=== PATIENT | female | born 1980 | race African-American/Black ===

== ENCOUNTER 2017-03-18 20:12 | Emergency (ER) | payer OTHER ==
[~2017-03-18] VITALS: Ht 154.9 cm; Wt 89.8 kg
[~2017-03-18 20:12] MED LIST: ERGO500027 PO; FERR325T58 PO; HYDR50TA; IBUP-1060 PO; INSU100I17 SQ; INSU100I27 SQ; LISI-338 PO; METF500T PO; OLOP5DRO7 OU; ONDA4TAB7 PO; POLY10DR OD; VENTOLIN HFA18 GM
--- NOTE | 2017-03-18 21:28 | PHYS DOC ---
Past Medical History Past Medical History: Bronchitis, Diabetes-Type II, Other Additional Past Medical Histor: HEART MURMUR, VIT D DEF,STRABISMUS Past Surgical History: , Tubal ligation, Other Additional Past Surgical Histo: x 3, bilateral eye surgery. Alcohol Use: None Drug Use: None Adult General Chief Complaint Chief Complaint: ABDOMINAL PAIN HPI HPI Patient is a 36 year old female who presents with complaints of dysuria and mild abdominal pain in the middle of right side. Patient denies any fevers, chills, rashes, vomiting, diarrhea, vaginal discharge or vaginal bleeding. No history of trauma. Review of Systems Review of Systems Constitutional: Denies fever or chills [] Eyes: Denies change in visual acuity, redness, or eye pain [] HENT: Denies nasal congestion or sore throat [] Respiratory: Denies cough or shortness of breath [] Cardiovascular: No chest pain GI: Denies nausea, vomiting, bloody stools or diarrhea. Yes right middle abdominal pain : Denies dysuria or hematuria [] Musculoskeletal: Denies back pain or joint pain [] Integument: Denies rash or skin lesions [] Neurologic: Denies headache, focal weakness or sensory changes [] Current Medications Current Medications Current Medications Medications (Trade) Dose Ordered Sig/Rodri Start Time Stop Time Status Last Admin Dose Admin Hyoscyamine (Anaspaz) 0.125 mg PRN Q4HRS PRN 03/18/17 22:15 03/18/17 22:36 0.125 MG Ketorolac Tromethamine (Toradol) 15 mg 1X ONCE 03/18/17 23:00 03/18/17 23:01 DC 03/18/17 23:00 15 MG Naproxen (Naprosyn) 250 mg 1X ONCE 03/18/17 22:30 03/18/17 22:31 DC 03/18/17 22:36 250 MG Allergies Allergies Allergies Coded Allergies Type Severity Reaction Last Updated Verified No Known Drug Allergies 12/29/13 No Physical Exam Physical Exam Constitutional: Well developed, well nourished, no acute distress, non-toxic appearance. [] HENT: Normocephalic, atraumatic, bilateral external ears normal, oropharynx dry , no oral exudates, nose normal. [] Eyes:EOMI, conjunctiva normal, no discharge. [] Neck: Normal range of motion, no tenderness, trachea midline, no stridor. [] Cardiovascular:Heart rate regular rhythm, no murmur, equal pulses Lungs & Thorax: Bilateral breath sounds clear to auscultation, no tachypnea Abdomen: Bowel sounds normal, soft, very mild tenderness middle or right abdomen without guarding or rebound, no masses, no pulsatile masses. [] Skin: Warm, dry, no erythema, no rash. [] Back: No tenderness, no CVA tenderness. [] Extremities: No tenderness, no cyanosis, no DVT, ROM intact, no edema. [] Neurologic: Alert and oriented X 3, normal motor function, , no focal deficits noted. [] Psychologic: Affect normal, judgement normal, mood normal. [] Current Patient Data Vital Signs Vital Signs Date Time Temp Pulse Resp B/P (MAP) Pulse Ox O2 Delivery O2 Flow Rate FiO2 03/19/17 00:29 57 16 99/52 (68) 95 Room Air 03/18/17 21:25 98.6 98.6 Lab Values Laboratory Tests Test 03/18/17 20:22 03/18/17 21:33 03/18/17 21:58 Urine Collection Type Unknown Urine Color Yellow Urine Clarity Clear Urine pH 5.5 Urine Specific [place] >=1.030 Urine Protein Negative mg/dL (NEG-TRACE) Urine Glucose (UA) >=1000 mg/dL (NEG) Urine Ketones (Stick) Negative mg/dL (NEG) Urine Blood Negative (NEG) Urine Nitrite Negative (NEG) Urine Bilirubin Negative (NEG) Urine Urobilinogen Dipstick 0.2 mg/dL (0.2 mg/dL) Urine Leukocyte Esterase Negative (NEG) Urine RBC 0 /HPF (0-2) Urine WBC 5-10 /HPF (0-4) Urine Squamous Epithelial Cells Mod /LPF Urine Bacteria Few /HPF (0-FEW) POC Urine HCG, Qualitative Hcg negative (Negative) White Blood Count 8.0 x10^3/uL (4.0-11.0) Red Blood Count 4.07 x10^6/uL (3.50-5.40) Hemoglobin 10.1 g/dL (12.0-15.5) L Hematocrit 31.4 % (36.0-47.0) L Mean Corpuscular Volume 77 fL (79-100) L Mean Corpuscular Hemoglobin 25 pg (25-35) Mean Corpuscular Hemoglobin Concent 32 g/dL (31-37) Red Cell Distribution Width 17.7 % (11.5-14.5) H Platelet Count 267 x10^3/uL (140-400) Neutrophils (%) (Auto) 61 % (31-73) Lymphocytes (%) (Auto) 28 % (24-48) Monocytes (%) (Auto) 9 % (0-9) Eosinophils (%) (Auto) 2 % (0-3) Basophils (%) (Auto) 1 % (0-3) Neutrophils # (Auto) 4.9 x10^3uL (1.8-7.7) Lymphocytes # (Auto) 2.2 x10^3/uL (1.0-4.8) Monocytes # (Auto) 0.7 x10^3/uL (0.0-1.1) Eosinophils # (Auto) 0.2 x10^3/uL (0.0-0.7) Basophils # (Auto) 0.1 x10^3/uL (0.0-0.2) Sodium Level 134 mmol/L (136-145) L Potassium Level 3.9 mmol/L (3.5-5.1) Chloride Level 100 mmol/L (98-107) Carbon Dioxide Level 27 mmol/L (21-32) Anion Gap 7 (6-14) Blood Urea Nitrogen 7 mg/dL (7-20) Creatinine 0.8 mg/dL (0.6-1.0) Estimated GFR (Cockcroft-Gault) 97.1 BUN/Creatinine Ratio 9 (6-20) Glucose Level 386 mg/dL (70-99) H Calcium Level 8.7 mg/dL (8.5-10.1) Total Bilirubin 0.1 mg/dL (0.2-1.0) L Aspartate Amino Transferase (AST) 11 U/L (15-37) L Alanine Aminotransferase (ALT) 15 U/L (14-59) Alkaline Phosphatase 161 U/L (46-116) H Total Protein 7.6 g/dL (6.4-8.2) Albumin 3.3 g/dL (3.4-5.0) L Albumin/Globulin Ratio 0.8 (1.0-1.7) L Laboratory Tests 10/5/17 21:58 Laboratory Tests 03/18/17 21:58 EKG EKG [] Radiology/Procedures Radiology/Procedures US: Fatty liver, no other acute findings[] IMPRESSION: Enlarged fatty liver. Contracted gallbladder with no choleliths, sludge or wall thickening. Course & Med Decision Making Course & Med Decision Making Pertinent Labs and Imaging studies reviewed. (See chart for details) desire all been discussed with the patient. Patient has been advised to follow-up with her doctor for recheck and reevaluation in 2 days. [] Dragon Disclaimer Dragon Disclaimer This electronic medical record was generated, in whole or in part, using a voice recognition dictation system. Departure Departure Impression: Primary Impression: Abdominal pain Additional Impression: Fatty liver Disposition: HOME, SELF-CARE Condition: STABLE Referrals: KOSTA DOWNS (PCP) Follow-up for recheck and reevaluation 2 days Patient Instructions: Abdominal Pain (Nonspecific) Scripts Hyoscyamine Sulfate (LEVSIN) 0.125 Mg Tablet 1 TAB PO TID for 5 Days, #15 TAB 1 Refill Prov: Kimmy SU MD 03/19/17 Problem Qualifiers Kimmy SU MD Mar 18, 2017 21:28
[2017-03-18 21:39] LABS: BILIRUBIN,URINE NEGATIVE (NEG); GLUCOSE,URINE >=1000 mg/dL (NEG); NITRITE,URINE NEGATIVE (NEG); PH,URINE 5.5; PROTEIN,URINE NEGATIVE (NEG-TRACE); UROBILINOGEN,URINE 0.2 mg/dL (0.2 mg/dL)
[2017-03-18 21:48] LABS: BACTERIA,URINE FEW /HPF (0-FEW); RBC,URINE 0 /HPF (0-2); SQUAMOUS EPITHELIAL CELL,UR MOD /LPF
[2017-03-18 22:07] LABS: BASO # 0.1 x10^3/uL (0.0-0.2); BASO % 1 % (0-3); EOS % 2 % (0-3); HEMATOCRIT 31.4 % (36.0-47.0); HEMOGLOBIN 10.1 g/dL (12.0-15.5); LYMPH # 2.2 x10^3/uL (1.0-4.8); LYMPH % 28 % (24-48); MEAN CORPUSCULAR HEMOGLOBIN 25 pg (25-35); MEAN CORPUSCULAR HGB CONC 32 g/dL (31-37); MEAN CORPUSCULAR VOLUME 77 fL (79-100); MONO % 9 % (0-9); NEUT % 61 % (31-73); PLATELET COUNT 267 x10^3/uL (140-400); RED BLOOD COUNT 4.07 x10^6/uL (3.50-5.40); RED CELL DISTRIBUTION WIDTH 17.7 % (11.5-14.5)
[2017-03-18] MEDS ORDERED: HYOSCYAMINE 0.125 MG TAB.RAPDIS PO PRN (22:15)
[2017-03-18] MEDS ORDERED: NAPROXEN 250 MG TABLET PO ONE (22:30)
[2017-03-18 22:31] LABS: CALCIUM 8.7 mg/dL (8.5-10.1); CREATININE 0.8 mg/dL (0.6-1.0); GFR 97.1; POTASSIUM 3.9 mmol/L (3.5-5.1)
[2017-03-18 22:44] LABS: ALBUMIN 3.3 g/dL (3.4-5.0); ALBUMIN/GLOBULIN RATIO 0.8 (1.0-1.7); TOTAL BILIRUBIN 0.1 mg/dL (0.2-1.0); TOTAL PROTEIN 7.6 g/dL (6.4-8.2)
[2017-03-18] MEDS ORDERED: KETOROLAC 15 MG/ML VIAL. IV ONE (23:00)
--- NOTE | 2017-03-19 01:03 | RAD ---
Abdominal ultrasound right upper quadrant: Reason for examination: Right upper quadrant abdominal pain with nausea. Nothing by mouth 6.5 to 7 hours. The pancreas is poorly visualized due to bowel gas. Visualized portion of the inferior vena cava shows no abnormality. The liver appears to be enlarged at 20.6 cm with fatty infiltration. There appears to be normal hepatopetal blood flow in the portal venous system. The right kidney measures 11.3 x 4.9 x 4.3 cm in greatest dimension and shows normal cortical medullary differentiation and good blood flow with no mass or hydronephrosis. The gallbladder is contracted with no cholelithiasis or wall thickening evident. Common bile duct is normal at 5.3 mm. IMPRESSION: Enlarged fatty liver. Contracted gallbladder with no choleliths, sludge or wall thickening. Electronically signed by: Mary Smith MD (03/19/2017 1:00 AM) [id number]
[2017-03-19 01:43] VITALS: BP 112/53
[2017-03-19] MEDS ORDERED: HYOS0.1264 PO (01:52)
== END 2017-03-19 02:04 | disposition home or self-care (01) ==
LOC: ER 20:12
DX: R10.9 Unspecified abdominal pain (principal); R30.0 Dysuria; K76.0 Fatty (change of) liver, not elsewhere classified; E11.9 Type 2 diabetes mellitus without complications
CPT/HCPCS: 36415; 76705; 80053; 81001; 81025; 85025; 87086; 96374; 99285; J1885

== ENCOUNTER 2017-07-26 11:30 | Emergency (ER) | payer OTHER ==
[2017-07-26 11:58] LABS: URINE HCG POC HCG NEGATIVE (Negative)
[2017-07-26 12:00] LABS: POC GLUCOSE 515 mg/dL (70-99)
[2017-07-26 12:02] LABS: ADD MAN DIFF? NO
[2017-07-26 12:09] LABS: BASO # 0.1 x10^3/uL (0.0-0.2); BASO % 1 % (0-3); EOS # 0.1 x10^3/uL (0.0-0.7); EOS % 1 % (0-3); HEMOGLOBIN 11.8 g/dL (12.0-15.5); LYMPH # 1.5 x10^3/uL (1.0-4.8); LYMPH % 26 % (24-48); MEAN CORPUSCULAR HEMOGLOBIN 25 pg (25-35); MEAN CORPUSCULAR HGB CONC 32 g/dL (31-37); MEAN CORPUSCULAR VOLUME 80 fL (79-100); MONO # 0.5 x10^3/uL (0.0-1.1); MONO % 8 % (0-9); NEUT # 3.7 x10^3uL (1.8-7.7); NEUT % 63 % (31-73); PLATELET COUNT 289 x10^3/uL (140-400); RED BLOOD COUNT 4.65 x10^6/uL (3.50-5.40); RED CELL DISTRIBUTION WIDTH 17.4 % (11.5-14.5); WHITE BLOOD COUNT 5.8 x10^3/uL (4.0-11.0)
[2017-07-26] MEDS: FAMOTIDINE 20 MG/2 ML VIAL IVP ×2 (12:20)
[2017-07-26] MEDS: IV NORMAL SALINE 1000ML BAG 1,000 ML IV ×6 (12:21→14:14)
[2017-07-26] MEDS: INSULIN REGULAR 100 UNIT/ML 10ML VIAL. SQ ×2 (12:25)
[2017-07-26 12:44] LABS: ALBUMIN 3.4 g/dL (3.4-5.0); ALBUMIN/GLOBULIN RATIO 0.7 (1.0-1.7); ALK PHOS 234 U/L (46-116); ALT (SGPT) 14 U/L (14-59); ANION GAP 10 (6-14); AST (SGOT) 12 U/L (15-37); BLOOD UREA NITROGEN 12 mg/dL (7-20); BUN/CREATININE RATIO 15 (6-20); CALCIUM 9.6 mg/dL (8.5-10.1); CARBON DIOXIDE 26 mmol/L (21-32); CHLORIDE 96 mmol/L (98-107); CREATININE 0.8 mg/dL (0.6-1.0); GFR 97.1; LIPASE 103 U/L (73-393); POTASSIUM 4.3 mmol/L (3.5-5.1); SODIUM 132 mmol/L (136-145); TOTAL BILIRUBIN 0.2 mg/dL (0.2-1.0); TOTAL PROTEIN 8.6 g/dL (6.4-8.2)
[2017-07-26 12:47] LABS: POC GLUCOSE 397 mg/dL (70-99)
[2017-07-26 12:48] LABS: GLUCOSE 542 mg/dL (70-99)
[2017-07-26 12:49] LABS: ACETONE NEG (NEG)
[2017-07-26 12:57] LABS: NEG OBC SER NEG; POS OBC SER POS; PREG TEST PT QUAL NEGATIVE (NEG)
[2017-07-26] MEDS: IV NORMAL SALINE 1000ML BAG 500 ML IV ×2 (14:15)
[2017-07-26 14:16] LABS: POC GLUCOSE 331 mg/dL (70-99)
== END 2017-07-26 15:39 | disposition home or self-care (01) ==
LOC: ER 11:30
DX: Z91.14 Patient's other noncompliance with medication regimen (principal); E11.65 Type 2 diabetes mellitus with hyperglycemia; F17.210 Nicotine dependence, cigarettes, uncomplicated; Z88.2 Allergy status to sulfonamides; Z88.1 Allergy status to other antibiotic agents
CPT/HCPCS: 36415; 80053; 81025; 82010; 82962; 83690; 84703; 85025; 96361; 96372; 96374; 99284-25; J1815; J7030; S0028

== ENCOUNTER 2017-08-31 10:13 | Emergency (ER) | payer OTHER ==
[2017-08-31 10:33] LABS: ADD MAN DIFF? NO
[2017-08-31 10:43] LABS: URINE HCG POC HCG NEGATIVE (Negative)
[2017-08-31 10:48] LABS: ANION GAP 9 (6-14); BASO % 1 % (0-3); BLOOD UREA NITROGEN 9 mg/dL (7-20); BUN/CREATININE RATIO 13 (6-20); CALCIUM 8.5 mg/dL (8.5-10.1); CARBON DIOXIDE 28 mmol/L (21-32); CHLORIDE 100 mmol/L (98-107); CREATININE 0.7 mg/dL (0.6-1.0); EOS # 0.1 x10^3/uL (0.0-0.7); EOS % 2 % (0-3); GFR 112.7; GLUCOSE 326 mg/dL (70-99); HEMOGLOBIN 10.4 g/dL (12.0-15.5); LYMPH # 1.6 x10^3/uL (1.0-4.8); LYMPH % 30 % (24-48); MEAN CORPUSCULAR HEMOGLOBIN 26 pg (25-35); MEAN CORPUSCULAR HGB CONC 32 g/dL (31-37); MEAN CORPUSCULAR VOLUME 79 fL (79-100); MONO # 0.5 x10^3/uL (0.0-1.1); MONO % 10 % (0-9); NEUT # 2.9 x10^3uL (1.8-7.7); NEUT % 57 % (31-73); PLATELET COUNT 279 x10^3/uL (140-400); POTASSIUM 3.6 mmol/L (3.5-5.1); RED BLOOD COUNT 4.04 x10^6/uL (3.50-5.40); RED CELL DISTRIBUTION WIDTH 18.5 % (11.5-14.5); SODIUM 137 mmol/L (136-145); WHITE BLOOD COUNT 5.1 x10^3/uL (4.0-11.0)
[2017-08-31 10:53] LABS: NEG OBC SER NEG; POS OBC SER POS; PREG TEST PT QUAL NEGATIVE (NEG)
[2017-08-31 10:57] LABS: TROPONINI < 0.017 ng/mL (0.000-0.055)
[2017-08-31 10:58] LABS: ALBUMIN 2.9 g/dL (3.4-5.0); ALBUMIN/GLOBULIN RATIO 0.7 (1.0-1.7); ALK PHOS 152 U/L (46-116); ALT (SGPT) 16 U/L (14-59); AST (SGOT) 19 U/L (15-37); TOTAL BILIRUBIN 0.2 mg/dL (0.2-1.0); TOTAL PROTEIN 7.2 g/dL (6.4-8.2)
[2017-08-31] MEDS: FAMOTIDINE 20 MG TABLET. PO (11:03)
[2017-08-31] MEDS: LIDO:MAALOX:DONNATAL 1:1:1 15 ML SINGLE DOSE SWSW (11:03)
== END 2017-08-31 11:55 | disposition home or self-care (01) ==
LOC: ER 10:13
DX: R07.89 Other chest pain (principal); R09.81 Nasal congestion; R05 Cough; K21.9 Gastro-esophageal reflux disease without esophagitis; E11.9 Type 2 diabetes mellitus without complications; Z98.51 Tubal ligation status; Z90.49 Acquired absence of other specified parts of digestive tract; Z88.2 Allergy status to sulfonamides; Z88.1 Allergy status to other antibiotic agents
CPT/HCPCS: 36415; 71045; 80053; 81025; 84484; 84703; 85025; 93005; 99285-25

== ENCOUNTER 2018-08-07 00:12 | Emergency (ER) | payer SELFPAY ==
[~2018-08-07] VITALS: Ht 157.5 cm; Wt 80.3 kg
[~2018-08-07 00:12] MED LIST changes: +HYOS0.1264 PO; +OLOP5DRO13 OU; -OLOP5DRO7 OU
[2018-08-07 00:28] VITALS: BP 136/87
[2018-08-07 00:34] LABS: CLARITY,URINE TURBID; COLOR,URINE RED
[2018-08-07 00:43] LABS: BACTERIA,URINE FEW /HPF (0-FEW); RBC,URINE TNTC /HPF (0-2); SQUAMOUS EPITHELIAL CELL,UR FEW /LPF; WBC,URINE 20-40 /HPF (0-4)
[2018-08-07 00:44] LABS: U PREG PATIENT NEGATIVE (NEG)
[2018-08-07 01:10] LABS: BILIRUBIN,URINE NEGATIVE (NEG); CLARITY,URINE CLOUDY; COLOR,URINE YELLOW; NITRITE,URINE NEGATIVE (NEG); PROTEIN,URINE 100 mg/dL (NEG-TRACE)
[2018-08-07 01:16] LABS: BACTERIA,URINE FEW /HPF (0-FEW); SQUAMOUS EPITHELIAL CELL,UR FEW /LPF; WBC,URINE 20-40 /HPF (0-4)
[2018-08-07] MEDS ORDERED: PHENAZOPYRIDINE 200 MG TABLET. PO ONE (01:30)
[2018-08-07] MEDS ORDERED: SULF1TAB24 PO (01:32)
[2018-08-07] MEDS ORDERED: PHEN-318 PO (01:32)
[2018-08-07] MEDS ORDERED: NITR100C63 PO (01:40)
--- NOTE | 2018-08-07 01:56 | PHYS DOC ---
Past Medical History Past Medical History: Bronchitis, Depression, Diabetes-Type II Additional Past Medical Histor: vitamin D deficency Past Surgical History: , Tubal ligation Additional Past Surgical Histo: eye surgery (strabismus correction) Alcohol Use: None Drug Use: None Adult General Chief Complaint Chief Complaint: PAIN ON URINATION HPI HPI Patient is a 37 year old female who presents with dysuria, urinary frequency and urgency the past 24 hours. Patient was reports hematuria she is on her menstrual period. No flank pain, and no fever chills, nausea vomiting or sweats. No other acute symptoms or complaints. History of recurrent urinary tract infections. [] Review of Systems Review of Systems Symptoms as per history of present illness. All other review symptoms are negative. All other systems were reviewed and found to be within normal limits, except as documented in this note. Current Medications Current Medications Current Medications Medications (Trade) Dose Ordered Sig/Rodri Start Time Stop Time Status Last Admin Dose Admin Nitrofurantoin Macrocrystals (Macrobid) 100 mg 1X ONCE 08/07/18 02:00 08/07/18 02:01 Phenazopyridine HCl (Pyridium) 200 mg 1X ONCE 08/07/18 01:30 08/07/18 01:31 DC 08/07/18 01:30 200 MG Allergies Allergies Allergies Coded Allergies Type Severity Reaction Last Updated Verified sulfamethoxazole Adverse Reaction Intermediate nausea and vomiting 07/26/17 Yes trimethoprim Adverse Reaction Intermediate nausea and vomiting 07/26/17 Yes Physical Exam Physical Exam Constitutional: Well developed, well nourished, no acute distress, non-toxic appearance. [] HENT: Normocephalic, atraumatic, bilateral external ears normal, oropharynx moist, nose normal. [] Eyes: PERRLA, EOMI, conjunctiva normal, no discharge. [] Lungs & Thorax: Bilateral breath sounds clear to auscultation [] Abdomen: Bowel sounds normal, soft, suprapubic pain, tenderness. [] Skin: Warm, dry, no erythema, no rash. [] Back: No tenderness, no CVA tenderness. [] Extremities: No tenderness, no cyanosis, no clubbing, ROM intact, no edema. [] Neurologic: Alert and oriented X 3. [] Psychologic: Affect normal, judgement normal, mood normal. [] Current Patient Data Vital Signs Vital Signs Date Time Temp Pulse Resp B/P (MAP) Pulse Ox O2 Delivery O2 Flow Rate FiO2 08/07/18 00:28 97.4 96 18 136/87 (103) 98 Room Air 97.4 Lab Values Laboratory Tests Test 08/07/18 00:15 08/07/18 00:58 Urine Collection Type Unknown U cath Urine Color Red Yellow Urine Clarity Turbid Cloudy Urine pH 6.0 Urine Specific [place] >=1.030 >=1.030 Urine Protein mg/dL (NEG-TRACE) 100 mg/dL (NEG-TRACE) Urine Glucose (UA) mg/dL (NEG) >=1000 mg/dL (NEG) Urine Ketones (Stick) mg/dL (NEG) Negative mg/dL (NEG) Urine Blood (NEG) Large (NEG) Urine Nitrite (NEG) Negative (NEG) Urine Bilirubin (NEG) Negative (NEG) Urine Urobilinogen Dipstick mg/dL (0.2 mg/dL) 1.0 mg/dL (0.2 mg/dL) Urine Leukocyte Esterase (NEG) Small (NEG) Urine RBC Tntc /HPF (0-2) 11-20 /HPF (0-2) Urine WBC 20-40 /HPF (0-4) 20-40 /HPF (0-4) Urine Squamous Epithelial Cells Few /LPF Few /LPF Urine Bacteria Few /HPF (0-FEW) Few /HPF (0-FEW) Urine Test Negative (NEG) Urine Mucus Slight /LPF EKG EKG [] Radiology/Procedures Radiology/Procedures [] Course & Med Decision Making Course & Med Decision Making Pertinent Labs and Imaging studies reviewed. (See chart for details) [First dose of antibiotics given. Recommend PCP follow-up] Dragon Disclaimer Dragon Disclaimer This electronic medical record was generated, in whole or in part, using a voice recognition dictation system. Departure Departure Impression: Primary Impression: UTI (urinary tract infection) Disposition: 01 HOME, SELF-CARE Condition: GOOD Patient Instructions: Urinary Tract Infection, [id number] Additional Instructions: Please take antibiotics as directed and Pyridium for pain relief. Follow-up with your PCP in 2-3 days for urine culture results. Return to the ED if new or worsening symptoms. Scripts Nitrofurantoin Macrocrystal (MACRODANTIN) 100 Mg Capsule 1 CAP PO BID, #20 CAP Prov: ALFONSO ALEXANDER DO 08/07/18 Phenazopyridine Hcl (PYRIDIUM) 200 Mg Tablet 200 MG PO TID, #6 TAB Prov: ALFONSO ALEXANDER DO 08/07/18 ALFONSO ALEXANDER DO Aug 07, 2018 01:56
[2018-08-07] MEDS ORDERED: NITROFURANTOIN MONOHYD/M-CRYST 100 MG CAPSULE. PO ONE (02:00)
== END 2018-08-07 01:56 | disposition home or self-care (01) ==
LOC: ER 00:12
DX: N39.0 Urinary tract infection, site not specified (principal); E11.9 Type 2 diabetes mellitus without complications; Z98.51 Tubal ligation status; Z88.1 Allergy status to other antibiotic agents; Z88.2 Allergy status to sulfonamides
CPT/HCPCS: 81001; 81025; 87086; 87186; 99283

== ENCOUNTER 2018-11-13 23:13 | Emergency (ER) | payer OTHER, SELFPAY ==
[~2018-11-13] VITALS: Ht 157.5 cm; Wt 76.2 kg
[~2018-11-13 23:13] MED LIST changes: +NITR100C63 PO; +PHEN-318 PO; +SULF1TAB24 PO
[2018-11-14 00:56] LABS: BILIRUBIN,URINE NEGATIVE (NEG); CLARITY,URINE CLEAR; COLOR,URINE YELLOW; NITRITE,URINE POSITIVE (NEG); PROTEIN,URINE NEGATIVE (NEG-TRACE)
[2018-11-14 00:57] LABS: CALCIUM 8.9 mg/dL (8.5-10.1); CREATININE 0.7 mg/dL (0.6-1.0); GFR 112.1; POTASSIUM 4.3 mmol/L (3.5-5.1)
[2018-11-14 01:03] LABS: ALBUMIN 3.5 g/dL (3.4-5.0); ALBUMIN/GLOBULIN RATIO 0.8 (1.0-1.7); MAGNESIUM 1.9 mg/dL (1.8-2.4); TOTAL BILIRUBIN 0.2 mg/dL (0.2-1.0); TOTAL PROTEIN 7.9 g/dL (6.4-8.2)
[2018-11-14 01:08] LABS: BASO # 0.1 x10^3/uL (0.0-0.2); BASO % 1 % (0-3); EOS # 0.1 x10^3/uL (0.0-0.7); EOS % 1 % (0-3); HEMATOCRIT 33.3 % (36.0-47.0); HEMOGLOBIN 10.6 g/dL (12.0-15.5); LYMPH # 2.6 x10^3/uL (1.0-4.8); LYMPH % 35 % (24-48); MEAN CORPUSCULAR HEMOGLOBIN 24 pg (25-35); MEAN CORPUSCULAR HGB CONC 32 g/dL (31-37); MEAN CORPUSCULAR VOLUME 76 fL (79-100); MONO # 1.2 x10^3/uL (0.0-1.1); MONO % 16 % (0-9); NEUT # 3.7 x10^3uL (1.8-7.7); NEUT % 48 % (31-73); PLATELET COUNT 243 x10^3/uL (140-400); RED BLOOD COUNT 4.36 x10^6/uL (3.50-5.40); RED CELL DISTRIBUTION WIDTH 15.7 % (11.5-14.5); WHITE BLOOD COUNT 7.7 x10^3/uL (4.0-11.0)
[2018-11-14 01:12] LABS: BACTERIA,URINE MANY /HPF (0-FEW); RBC,URINE OCC /HPF (0-2); SQUAMOUS EPITHELIAL CELL,UR MOD /LPF; WBC,URINE TNTC /HPF (0-4)
[2018-11-14] MEDS ORDERED: CEPH500C PO (01:27)
[2018-11-14 02:59] VITALS: BP 107/55
--- NOTE | 2018-11-14 03:14 | PHYS DOC ---
Past Medical History Past Medical History: Bronchitis, Depression, Diabetes-Type II Additional Past Medical Histor: vitamin D deficency Past Surgical History: , Tubal ligation Additional Past Surgical Histo: eye surgery (strabismus correction) Alcohol Use: None Drug Use: None Adult General Chief Complaint Chief Complaint: MULTIPLE COMPLAINTS HPI HPI Patient is a 38 year old f with cc of scalp numnbess. right side x one day. no trauma noted. also has intermittent numbness of the b/l legs and hands comes and goes thinks that is from diabetes no headche no speech problem, no facial symptoms. no fever. tries to be comlpiant with her medications symptoms modeating nonradiating. Review of Systems Review of Systems Constitutional: Denies fever or chills [] Eyes: Denies change in visual acuity, redness, or eye pain [] HENT: Denies nasal congestion or sore throat [] Respiratory: Denies cough or shortness of breath [] Musculoskeletal: Denies back pain or joint pain [] All other systems were reviewed and found to be within normal limits, except as documented in this note. Allergies Allergies Allergies Coded Allergies Type Severity Reaction Last Updated Verified sulfamethoxazole Adverse Reaction Intermediate nausea and vomiting 07/26/17 Yes trimethoprim Adverse Reaction Intermediate nausea and vomiting 07/26/17 Yes Physical Exam Physical Exam Constitutional: Well developed, well nourished, no acute distress, non-toxic appearance. [] HENT: Normocephalic, atraumatic, bilateral external ears normal, oropharynx moist, no oral exudates, nose normal. [] Eyes: PERRLA, EOMI, conjunctiva normal, no discharge. [] Neck: Normal range of motion, no tenderness, supple, no stridor. [] Cardiovascular:Heart rate regular rhythm, no murmur [] Lungs & Thorax: Bilateral breath sounds clear to auscultation [] Abdomen: Bowel sounds normal, soft, no tenderness, no masses, no pulsatile masses. [] Skin: Warm, dry, no erythema, no rash. [] no obvious scalp lesion noted Back: No tenderness, no CVA tenderness. [] Extremities: No tenderness, no cyanosis, no clubbing, ROM intact, no edema. [] Neurologic: Alert and oriented X 3, normal motor function, normal sensory fu nction, no focal deficits noted. [] sensation and motor function intact, cn's intact Psychologic: Affect normal, judgement normal, mood normal. [] Current Patient Data Vital Signs Vital Signs Date Time Temp Pulse Resp B/P (MAP) Pulse Ox O2 Delivery O2 Flow Rate FiO2 11/14/18 00:34 78 18 115/70 (85) 99 Room Air 11/13/18 23:50 98.4 98.4 Lab Values Laboratory Tests Test 11/14/18 00:01 11/14/18 00:20 Urine Collection Type Unknown Urine Color Yellow Urine Clarity Clear Urine pH 7.0 Urine Specific [place] >=1.030 Urine Protein Negative mg/dL (NEG-TRACE) Urine Glucose (UA) >=1000 mg/dL (NEG) Urine Ketones (Stick) Negative mg/dL (NEG) Urine Blood Negative (NEG) Urine Nitrite Positive (NEG) Urine Bilirubin Negative (NEG) Urine Urobilinogen Dipstick 1.0 mg/dL (0.2 mg/dL) Urine Leukocyte Esterase Small (NEG) Urine RBC Occ /HPF (0-2) Urine WBC Tntc /HPF (0-4) Urine Squamous Epithelial Cells Mod /LPF Urine Bacteria Many /HPF (0-FEW) Urine Mucus Slight /LPF POC Urine HCG, Qualitative Hcg negative (Negative) White Blood Count 7.7 x10^3/uL (4.0-11.0) Red Blood Count 4.36 x10^6/uL (3.50-5.40) Hemoglobin 10.6 g/dL (12.0-15.5) L Hematocrit 33.3 % (36.0-47.0) L Mean Corpuscular Volume 76 fL (79-100) L Mean Corpuscular Hemoglobin 24 pg (25-35) L Mean Corpuscular Hemoglobin Concent 32 g/dL (31-37) Red Cell Distribution Width 15.7 % (11.5-14.5) H Platelet Count 243 x10^3/uL (140-400) Neutrophils (%) (Auto) 48 % (31-73) Lymphocytes (%) (Auto) 35 % (24-48) Monocytes (%) (Auto) 16 % (0-9) H Eosinophils (%) (Auto) 1 % (0-3) Basophils (%) (Auto) 1 % (0-3) Neutrophils # (Auto) 3.7 x10^3uL (1.8-7.7) Lymphocytes # (Auto) 2.6 x10^3/uL (1.0-4.8) Monocytes # (Auto) 1.2 x10^3/uL (0.0-1.1) H Eosinophils # (Auto) 0.1 x10^3/uL (0.0-0.7) Basophils # (Auto) 0.1 x10^3/uL (0.0-0.2) Sodium Level 134 mmol/L (136-145) L Potassium Level 4.3 mmol/L (3.5-5.1) Chloride Level 97 mmol/L (98-107) L Carbon Dioxide Level 29 mmol/L (21-32) Anion Gap 8 (6-14) Blood Urea Nitrogen 8 mg/dL (7-20) Creatinine 0.7 mg/dL (0.6-1.0) Estimated GFR (Cockcroft-Gault) 112.1 BUN/Creatinine Ratio 11 (6-20) Glucose Level 361 mg/dL (70-99) H Calcium Level 8.9 mg/dL (8.5-10.1) Magnesium Level 1.9 mg/dL (1.8-2.4) Total Bilirubin 0.2 mg/dL (0.2-1.0) Aspartate Amino Transferase (AST) 14 U/L (15-37) L Alanine Aminotransferase (ALT) 15 U/L (14-59) Alkaline Phosphatase 174 U/L (46-116) H Troponin I Quantitative < 0.017 ng/mL (0.000-0.055) Total Protein 7.9 g/dL (6.4-8.2) Albumin 3.5 g/dL (3.4-5.0) Albumin/Globulin Ratio 0.8 (1.0-1.7) L Laboratory Tests 11/14/18 00:20 Laboratory Tests 11/14/18 00:20 EKG EKG [] Radiology/Procedures Radiology/Procedures [] Impressions: wet read head ct neg acute Course & Med Decision Making Course & Med Decision Making Pertinent Labs and Imaging studies reviewed. (See chart for details) []38 yo f diabetic p/w isolated scalp numnbess. stroke scale 0 ct head neg pt reassured abx for possible uti counseled on good bg control. no evidnece of cva clinically Dragon Disclaimer Dragon Disclaimer This electronic medical record was generated, in whole or in part, using a voice recognition dictation system. Departure Departure Impression: Primary Impression: Urinary tract infection Disposition: 01 HOME, SELF-CARE Condition: STABLE Patient Instructions: Urinary Tract Infection Scripts Cephalexin (CEPHALEXIN) 500 Mg Capsule 1 CAP PO QID, #40 CAP Prov: ISABELLE NEELY MD 11/14/18 ISABELLE NEELY MD Nov 14, 2018 03:14
--- NOTE | 2018-11-14 06:42 | EKG ---
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
--- NOTE | 2018-11-14 23:53 | RAD ---
Sarah Bennettren INDICATION: Numbness of scalp and face COMPARISON: None. TECHNIQUE: Axial CT images obtained through the head without intravenous contrast. One or more of the following individualized dose reduction techniques were utilized for this examination: 1. Automated exposure control; 2. Adjustment of the mA and/or kV according to patient size; 3. Use of iterative reconstruction technique. FINDINGS: No intracranial hemorrhage. No midline shift. Basal cisterns patent. Ventricles and sulci are unremarkable. No acute osseous abnormality. Orbits and paranasal sinuses unremarkable. IMPRESSION: 1. No acute intracranial hemorrhage. Electronically signed by: Kody May MD (11/14/2018 11:50 PM) [facility]
== END 2018-11-14 03:09 | disposition home or self-care (01) ==
LOC: ER 23:13
DX: N39.0 Urinary tract infection, site not specified (principal); R20.0 Anesthesia of skin; F32.9 Major depressive disorder, single episode, unspecified; E11.9 Type 2 diabetes mellitus without complications; Z98.890 Other specified postprocedural states; Z98.51 Tubal ligation status; Z88.1 Allergy status to other antibiotic agents; Z88.2 Allergy status to sulfonamides
CPT/HCPCS: 36415; 70450; 80053; 81001; 81025; 83735; 84484; 85025; 87086; 87186; 93005; 99285-25

== ENCOUNTER 2019-01-16 19:26 | Emergency (ER) | payer OTHER ==
[~2019-01-16] VITALS: Ht 157.5 cm; Wt 73.9 kg
[~2019-01-16 19:26] MED LIST changes: +CEPH500C PO
[2019-01-16] MEDS ORDERED: IV NORMAL SALINE 1000ML BAG 1,000 ML IV SCH (19:53)
[2019-01-16] MEDS ORDERED: ACETAMINOPHEN 500 MG TABLET PO ONE (20:15)
[2019-01-16] MEDS ORDERED: fentaNYL PF VIAL 100 MCG/2 ML VIAL IV ONE (20:15)
[2019-01-16] MEDS ORDERED: ONDANSETRON PF 4 MG/2 ML VIAL. IV ONE (20:15)
--- NOTE | 2019-01-16 20:26 | PHYS DOC ---
Past Medical History Past Medical History: Diabetes-Type II Additional Past Medical Histor: vitamin D deficency (ELLIE TEIXEIRA APRN) Past Surgical History: Additional Past Surgical Histo: eye surgery (strabismus correction) (ELLIE TEIXEIRA APRN) Alcohol Use: None Drug Use: None (ELLIE TEIXEIRA APRN) Adult General Chief Complaint Chief Complaint: FLANK PAIN HPI HPI Patient is a 38 year old Female who presents with 1 week of right rib pain with occasional pain with taking a deep breath. Patient states she is also having nausea and vomiting. Patient is rating her pain a 8 out of 10 and states it is aching and sharp. (ELLIE TEIXEIRA APRN) Review of Systems Review of Systems Constitutional: Denies fever or chills [] Eyes: Denies change in visual acuity, redness, or eye pain [] HENT: Denies nasal congestion or sore throat [] Respiratory: Denies cough or shortness of breath [] Cardiovascular: No additional information not addressed in HPI [] GI: Denies abdominal pain, +nausea, +vomiting, denies bloody stools or diarrhea [] : Denies dysuria or hematuria [] Musculoskeletal: Right rib pain. Denies back pain or joint pain [] Integument: Denies rash or skin lesions [] Neurologic: Denies headache, focal weakness or sensory changes [] Endocrine: Denies polyuria or polydipsia [] All other systems were reviewed and found to be within normal limits, except as documented in this note. (ELLIE TEIXEIRA APRN) Current Medications Current Medications Current Medications Medications (Trade) Dose Ordered Sig/Rodri Start Time Stop Time Status Last Admin Dose Admin Acetaminophen (Tylenol) 1,000 mg 1X ONCE 01/16/19 20:15 01/16/19 20:22 DC 01/16/19 20:31 1,000 MG Ceftriaxone Sodium (Rocephin) 1 gm 1X ONCE 01/16/19 23:00 01/16/19 23:01 DC 01/16/19 22:52 1 GM Fentanyl Citrate (Fentanyl 2ml Vial) 50 mcg 1X ONCE 01/16/19 20:15 01/16/19 20:22 DC 01/16/19 20:38 50 MCG Info (CONTRAST GIVEN -- Rx MONITORING) 1 each PRN DAILY PRN 01/16/19 22:30 01/16/19 23:39 DC Iohexol (Omnipaque 350 Mg/ml) 90 ml 1X ONCE 01/16/19 22:30 01/16/19 22:31 DC 01/16/19 22:35 90 ML Ondansetron HCl (Zofran) 4 mg 1X ONCE 01/16/19 20:15 01/16/19 20:22 DC 01/16/19 20:33 4 MG Sodium Chloride 1,000 ml @ 1,000 mls/hr 1X ONCE 01/16/19 20:30 01/16/19 21:29 DC 01/16/19 20:30 1,000 MLS/HR (ISABELLE LEARY MD) Allergies Allergies Allergies Coded Allergies Type Severity Reaction Last Updated Verified sulfamethoxazole Adverse Reaction Intermediate nausea and vomiting 07/26/17 Yes trimethoprim Adverse Reaction Intermediate nausea and vomiting 07/26/17 Yes (ISABELLE LEARY MD) Physical Exam Physical Exam Constitutional: Well developed, well nourished, no acute distress, non-toxic appearance. [] HENT: Normocephalic, atraumatic, bilateral external ears normal, oropharynx moist, no oral exudates, nose normal. [] Eyes: PERRLA, EOMI, conjunctiva normal, no discharge. [] Neck: Normal range of motion, no tenderness, supple, no stridor. [] Cardiovascular:Heart rate regular tachy rhythm, no murmur [] Lungs & Thorax: Bilateral breath sounds clear to auscultation [] Abdomen: Bowel sounds normal, soft, no tenderness, no masses, no pulsatile masses. [] Skin: Warm, moist, no erythema, no rash. [] Back: Right rib tenderness with palpation. No tenderness, no CVA tenderness. [] Extremities: No tenderness, no cyanosis, no clubbing, ROM intact, no edema. [] Neurologic: Alert and oriented X 3, normal motor function, normal sensory function, no focal deficits noted. [] Psychologic: Affect normal, judgement normal, mood normal. [] (ELLIE TEIXEIRA APRN) Current Patient Data Vital Signs Vital Signs Date Time Temp Pulse Resp B/P (MAP) Pulse Ox O2 Delivery O2 Flow Rate FiO2 01/16/19 23:07 72 14 106/52 (70) 98 Room Air 01/16/19 19:41 99.9 99.9 (ISABELLE LEARY MD) Lab Values Laboratory Tests Test 01/16/19 19:30 01/16/19 20:10 01/16/19 20:30 01/16/19 22:15 Urine Opiates Screen Neg (NEG) Urine Methadone Screen Neg (NEG) Urine Barbiturates Neg (NEG) Urine Phencyclidine Screen Neg (NEG) Urine Amphetamine/Methamphetamine Neg (NEG) Urine Benzodiazepines Screen Neg (NEG) Urine Cocaine Screen Neg (NEG) Urine Cannabinoids Screen Neg (NEG) Urine Ethyl Alcohol Neg (NEG) POC Urine HCG, Qualitative Hcg negative (Negative) White Blood Count 6.3 x10^3/uL (4.0-11.0) Red Blood Count 4.26 x10^6/uL (3.50-5.40) Hemoglobin 10.2 g/dL (12.0-15.5) L Hematocrit 31.9 % (36.0-47.0) L Mean Corpuscular Volume 75 fL (79-100) L Mean Corpuscular Hemoglobin 24 pg (25-35) L Mean Corpuscular Hemoglobin Concent 32 g/dL (31-37) Red Cell Distribution Width 17.6 % (11.5-14.5) H Platelet Count 254 x10^3/uL (140-400) Neutrophils (%) (Auto) 82 % (31-73) H Lymphocytes (%) (Auto) 12 % (24-48) L Monocytes (%) (Auto) 5 % (0-9) Eosinophils (%) (Auto) 0 % (0-3) Basophils (%) (Auto) 1 % (0-3) Neutrophils # (Auto) 5.2 x10^3/uL (1.8-7.7) Lymphocytes # (Auto) 0.8 x10^3/uL (1.0-4.8) L Monocytes # (Auto) 0.3 x10^3/uL (0.0-1.1) Eosinophils # (Auto) 0.0 x10^3/uL (0.0-0.7) Basophils # (Auto) 0.0 x10^3/uL (0.0-0.2) D-Dimer (Roya) 0.71 ug/mlFEU (0.00-0.50) H Sodium Level 133 mmol/L (136-145) L Potassium Level 3.7 mmol/L (3.5-5.1) Chloride Level 96 mmol/L (98-107) L Carbon Dioxide Level 23 mmol/L (21-32) Anion Gap 14 (6-14) Blood Urea Nitrogen 9 mg/dL (7-20) Creatinine 0.9 mg/dL (0.6-1.0) Estimated GFR (Cockcroft-Gault) 83.9 BUN/Creatinine Ratio 10 (6-20) Glucose Level 289 mg/dL (70-99) H Lactic Acid Level 2.3 mmol/L (0.4-2.0) H Calcium Level 8.6 mg/dL (8.5-10.1) Total Bilirubin 0.3 mg/dL (0.2-1.0) Aspartate Amino Transferase (AST) 16 U/L (15-37) Alanine Aminotransferase (ALT) 18 U/L (14-59) Alkaline Phosphatase 145 U/L (46-116) H Total Protein 8.3 g/dL (6.4-8.2) H Albumin 3.3 g/dL (3.4-5.0) L Albumin/Globulin Ratio 0.7 (1.0-1.7) L Urine Collection Type Unknown Urine Color Yellow Urine Clarity Cloudy Urine pH 6.0 Urine Specific [place] 1.020 Urine Protein 100 mg/dL (NEG-TRACE) Urine Glucose (UA) >=1000 mg/dL (NEG) Urine Ketones (Stick) 15 mg/dL (NEG) Urine Blood Moderate (NEG) Urine Nitrite Positive (NEG) Urine Bilirubin Negative (NEG) Urine Urobilinogen Dipstick 1.0 mg/dL (0.2 mg/dL) Urine Leukocyte Esterase Large (NEG) Urine RBC 11-20 /HPF (0-2) Urine WBC Tntc /HPF (0-4) Urine Squamous Epithelial Cells Few /LPF Urine Bacteria Many /HPF (0-FEW) Urine Mucus Mod /LPF Laboratory Tests 01/16/19 20:30 Laboratory Tests 01/16/19 20:30 (ISABELLE LEARY MD) Lab Values Laboratory Tests Test 01/16/19 19:30 01/16/19 20:10 01/16/19 20:30 01/16/19 22:15 Urine Opiates Screen Neg (NEG) Urine Methadone Screen Neg (NEG) Urine Barbiturates Neg (NEG) Urine Phencyclidine Screen Neg (NEG) Urine Amphetamine/Methamphetamine Neg (NEG) Urine Benzodiazepines Screen Neg (NEG) Urine Cocaine Screen Neg (NEG) Urine Cannabinoids Screen Neg (NEG) Urine Ethyl Alcohol Neg (NEG) POC Urine HCG, Qualitative Hcg negative (Negative) White Blood Count 6.3 x10^3/uL (4.0-11.0) Red Blood Count 4.26 x10^6/uL (3.50-5.40) Hemoglobin 10.2 g/dL (12.0-15.5) L Hematocrit 31.9 % (36.0-47.0) L Mean Corpuscular Volume 75 fL (79-100) L Mean Corpuscular Hemoglobin 24 pg (25-35) L Mean Corpuscular Hemoglobin Concent 32 g/dL (31-37) Red Cell Distribution Width 17.6 % (11.5-14.5) H Platelet Count 254 x10^3/uL (140-400) Neutrophils (%) (Auto) 82 % (31-73) H Lymphocytes (%) (Auto) 12 % (24-48) L Monocytes (%) (Auto) 5 % (0-9) Eosinophils (%) (Auto) 0 % (0-3) Basophils (%) (Auto) 1 % (0-3) Neutrophils # (Auto) 5.2 x10^3/uL (1.8-7.7) Lymphocytes # (Auto) 0.8 x10^3/uL (1.0-4.8) L Monocytes # (Auto) 0.3 x10^3/uL (0.0-1.1) Eosinophils # (Auto) 0.0 x10^3/uL (0.0-0.7) Basophils # (Auto) 0.0 x10^3/uL (0.0-0.2) D-Dimer (Roya) 0.71 ug/mlFEU (0.00-0.50) H Sodium Level 133 mmol/L (136-145) L Potassium Level 3.7 mmol/L (3.5-5.1) Chloride Level 96 mmol/L (98-107) L Carbon Dioxide Level 23 mmol/L (21-32) Anion Gap 14 (6-14) Blood Urea Nitrogen 9 mg/dL (7-20) Creatinine 0.9 mg/dL (0.6-1.0) Estimated GFR (Cockcroft-Gault) 83.9 BUN/Creatinine Ratio 10 (6-20) Glucose Level 289 mg/dL (70-99) H Lactic Acid Level 2.3 mmol/L (0.4-2.0) H Calcium Level 8.6 mg/dL (8.5-10.1) Total Bilirubin 0.3 mg/dL (0.2-1.0) Aspartate Amino Transferase (AST) 16 U/L (15-37) Alanine Aminotransferase (ALT) 18 U/L (14-59) Alkaline Phosphatase 145 U/L (46-116) H Total Protein 8.3 g/dL (6.4-8.2) H Albumin 3.3 g/dL (3.4-5.0) L Albumin/Globulin Ratio 0.7 (1.0-1.7) L Urine Collection Type Unknown Urine Color Yellow Urine Clarity Cloudy Urine pH 6.0 Urine Specific [place] 1.020 Urine Protein 100 mg/dL (NEG-TRACE) Urine Glucose (UA) >=1000 mg/dL (NEG) Urine Ketones (Stick) 15 mg/dL (NEG) Urine Blood Moderate (NEG) Urine Nitrite Positive (NEG) Urine Bilirubin Negative (NEG) Urine Urobilinogen Dipstick 1.0 mg/dL (0.2 mg/dL) Urine Leukocyte Esterase Large (NEG) Urine RBC 11-20 /HPF (0-2) Urine WBC Tntc /HPF (0-4) Urine Squamous Epithelial Cells Few /LPF Urine Bacteria Many /HPF (0-FEW) Urine Mucus Mod /LPF Laboratory Tests 01/16/19 20:30 Laboratory Tests 01/16/19 20:30 (ELLIE TEIXEIRA APRN) EKG EKG Sinus Tach and no STEMI[] Interpretation Time: [address] Leary (ELLIE TEIXEIRA APRN) Radiology/Procedures Radiology/Procedures [] (ELLIE TEIXEIRA APRN) Course & Med Decision Making Course & Med Decision Making Patient is a 38 year old Female who presents with 1 week of right rib pain with occasional pain with taking a deep breath. Patient states she is also having nausea and vomiting. Patient is rating her pain a 8 out of 10 and states it is aching and sharp. Patient denies abdominal pain, headache, dizziness, palp itations, chest pain, shortness of air, numbness or tingling, weakness. Upon walking the room patient is lying in bed on her right side with the blankets over her head and when I introduced myself she does not take the blankets off of her self. I take the blankets off for the patient and asked her again. Patient didn't response but does not roll over on the bed and she is asked several times to do so. Patient does comply. Patient does not have any pain with moving in the bed. Lungs are clear to auscultation in all lobes. Abdomen is soft and nontender. Patient has right rib tenderness with palpation. No CVA tenderness. Patient states she has been vomiting. Patient is diabetic. Patient heart rate is in the 130s. Patient denies any dysuria symptoms. Alert and oriented. PERRLA. No extremity swelling. Patient's skin is pink warm and moist. Patient states she is very cold. Patient's temp is 99.9. Speaks in full clear sentences. Denies any visual changes. Ambulatory with a steady gait. Chest x-ray read by Dr. Leary and shows no acute findings. D-dimer is elevated and have ordered a CT angiogram chest. EKG shows sinus tachycardia no STEMI. Patient's lactic acid is elevated and she have received 2 L of normal saline. Patient urinalysis shows infection. I have started Rocephin. 2247: Patient is reported off to Dr Leary. (ELLIE TEIXEIRA APRN) Course & Med Decision Making IMPRESSION: 1. No evidence for aortic dissection or pulmonary embolism. 2. Focal ill-defined hypoattenuating lesion in the inferior pole the right kidney measures approximately 1.7 x 1.3 cm. Consideration may be given for pyelonephritis. Complex or complicated cyst may have similar appearance. Consider renal ultrasound or short-term follow-up renal mass protocol CT for further evaluation. Electronically signed by: Preeti Garay MD (01/16/2019 11:01 PM) [facility] i saw pt she feels better eager to go home rx keflex hr no longer tachycardic return prec discussed (ISABELLE LEARY MD) Dragon Disclaimer Dragon Disclaimer This electronic medical record was generated, in whole or in part, using a voice recognition dictation system. (ELLIE TEIXEIRA APRN) Departure Departure Impression: Primary Impression: Urinary tract infection Disposition: HOME, SELF-CARE Condition: STABLE Referrals: KOSTA DOWNS (PCP) Scripts Cephalexin (CEPHALEXIN) 500 Mg Tablet 1 TAB PO QID, #40 TAB Prov: ISABELLE LEARY MD 01/16/19 ELLIE TEIXEIRA APRN Jan 16, 2019 20:26 ISABELLE LEARY MD Jan 17, 2019 01:01
[2019-01-16 20:29] LABS: BARBITURATES NEG (NEG); BENZODIAZEPINES NEG (NEG); CANNABINOIDS NEG (NEG); COCAINE NEG (NEG); METHADONE NEG (NEG); OPIATES NEG (NEG); PHENCYCLIDINE NEG (NEG)
[2019-01-16 20:30] LABS: AMPHETAMINE/METHAMPHETAMINE NEG (NEG)
[2019-01-16] MEDS ORDERED: IV NORMAL SALINE 1000ML BAG 1,000 ML IV ONE (20:30)
--- NOTE | 2019-01-16 20:36 | NUR ---
Preg ran in house. results negative.
[2019-01-16 20:42] LABS: BASO % 1 % (0-3); EOS % 0 % (0-3); HEMATOCRIT 31.9 % (36.0-47.0); HEMOGLOBIN 10.2 g/dL (12.0-15.5); LYMPH # 0.8 x10^3/uL (1.0-4.8); LYMPH % 12 % (24-48); MEAN CORPUSCULAR HEMOGLOBIN 24 pg (25-35); MEAN CORPUSCULAR HGB CONC 32 g/dL (31-37); MEAN CORPUSCULAR VOLUME 75 fL (79-100); MONO # 0.3 x10^3/uL (0.0-1.1); MONO % 5 % (0-9); NEUT # 5.2 x10^3/uL (1.8-7.7); NEUT % 82 % (31-73); PLATELET COUNT 254 x10^3/uL (140-400); RED BLOOD COUNT 4.26 x10^6/uL (3.50-5.40); RED CELL DISTRIBUTION WIDTH 17.6 % (11.5-14.5); WHITE BLOOD COUNT 6.3 x10^3/uL (4.0-11.0)
[2019-01-16 20:53] LABS: CALCIUM 8.6 mg/dL (8.5-10.1); CREATININE 0.9 mg/dL (0.6-1.0); GFR 83.9; POTASSIUM 3.7 mmol/L (3.5-5.1)
[2019-01-16 20:58] LABS: ALBUMIN 3.3 g/dL (3.4-5.0); ALBUMIN/GLOBULIN RATIO 0.7 (1.0-1.7); TOTAL BILIRUBIN 0.3 mg/dL (0.2-1.0); TOTAL PROTEIN 8.3 g/dL (6.4-8.2)
[2019-01-16 22:25] LABS: BILIRUBIN,URINE NEGATIVE (NEG); CLARITY,URINE CLOUDY; COLOR,URINE YELLOW; NITRITE,URINE POSITIVE (NEG); PROTEIN,URINE 100 mg/dL (NEG-TRACE)
[2019-01-16 22:29] LABS: BACTERIA,URINE MANY /HPF (0-FEW); SQUAMOUS EPITHELIAL CELL,UR FEW /LPF; WBC,URINE TNTC /HPF (0-4)
[2019-01-16] MEDS ORDERED: CONTRAST GIVEN. MC PRN (22:30)
[2019-01-16] MEDS ORDERED: IOHEXOL 350 MG/ML 100 ML VIAL. IV ONE (22:30)
[2019-01-16] MEDS ORDERED: cefTRIAXone IV Push 1 GM VIAL. IVP ONE (23:00)
--- NOTE | 2019-01-16 23:04 | RAD ---
PQRS Compliance Statement: One or more of the following individualized dose reduction techniques were utilized for this examination: 1. Automated exposure control 2. Adjustment of the mA and/or kV according to patient size 3. Use of iterative reconstruction technique CT angiogram chest, abdomen and pelvis with contrast 01/16/2019 9:50 PM INDICATION: Elevated d-dimer COMPARISON: None available TECHNIQUE: Multiple axial CT images of the chest, abdomen and pelvis were obtained after the intravenous administration of nonionic contrast. Coronal and sagittal reformats are provided. Maximum intensity projection images are provided. FINDINGS: No pathologically enlarged thoracic lymph nodes are identified. Thyroid gland is normal in appearance. Heart size within normal limits. Thoracic aorta is normal in course and caliber. No filling defects are identified within the opacified portions of the pulmonary arteries to suggest acute or chronic pulmonary emboli. No suspicious solid noncalcified pulmonary nodules. No pleural effusions, pulmonary vascular congestion or pneumothorax. Lungs are clear. Liver, spleen, bilateral adrenal glands, pancreas and gallbladder are normal in appearance. The abdominal aorta is normal in course and caliber. There are no pathologically enlarged lymph nodes in the abdomen and pelvis. There is no abdominal free fluid. There is no free intraperitoneal air. Small and large bowel are normal in caliber. There is no evidence for bowel obstruction. There are no pericolonic inflammatory changes. A normal, nondilated appendix is visualized without adjacent inflammatory changes. The kidneys enhance symmetrically. Ill-defined hypoattenuation is identified in the inferior pole the right kidney (series 5, image 34) measuring 1.7 x 1.3 cm. Correlate with any signs and symptoms of pyelonephritis. There is no hydronephrosis. There are no suspected calculi within the kidneys, ureters or urinary bladder. 5 mm simple cyst in the inferior pole the left kidney. Right adnexal cyst measures 3.1 x 3.0 cm. Uterus and left adnexa are normal by CT. No suspicious osseous abnormality is identified. IMPRESSION: 1. No evidence for aortic dissection or pulmonary embolism. 2. Focal ill-defined hypoattenuating lesion in the inferior pole the right kidney measures approximately 1.7 x 1.3 cm. Consideration may be given for pyelonephritis. Complex or complicated cyst may have similar appearance. Consider renal ultrasound or short-term follow-up renal mass protocol CT for further evaluation. Electronically signed by: Preeti Garay MD (01/16/2019 11:01 PM) [facility]
[2019-01-16 23:07] VITALS: BP 106/52
[2019-01-16] MEDS ORDERED: CEPH500T PO (23:20)
--- NOTE | 2019-01-17 07:24 | EKG ---
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
--- NOTE | 2019-01-17 08:22 | RAD ---
CHEST PA LATERAL, RIBS RIGHT History: Right-sided flank pain, nausea and vomiting Comparison: 08/31/2017 chest AP view Findings: Frontal and lateral views of chest were obtained. Frontal view of the right ribs and oblique view of the right ribs were provided. The cardiomediastinal silhouette is normal. Pulmonary vasculature is normal. The lungs are clear. No pleural effusion or pneumothorax is seen. There is no acute bone abnormality. No right rib fracture. IMPRESSION: No acute cardiopulmonary process. Electronically signed by: Ba Black MD (01/17/2019 8:19 AM) [facility]
== END 2019-01-16 23:31 | disposition home or self-care (01) ==
LOC: ER 19:26
DX: N39.0 Urinary tract infection, site not specified (principal); R07.81 Pleurodynia; R11.2 Nausea with vomiting, unspecified; E11.9 Type 2 diabetes mellitus without complications; Z88.1 Allergy status to other antibiotic agents; Z88.2 Allergy status to sulfonamides
CPT/HCPCS: 36415; 71046; 71100; 71275; 74177; 80053; 80307; 81001; 81025; 83605; 85025; 85379; 87040; 87086; 93005; 96361; 96374; 96375; 99285; J0696; J2405; J3010; J7030; Q9967

== ENCOUNTER 2019-08-04 23:32 | Emergency (ER) | payer OTHER ==
[~2019-08-04] VITALS: Ht 157.5 cm; Wt 79.1 kg
[~2019-08-04 23:32] MED LIST changes: +CEPH500T PO
[2019-08-05] VITALS: BP 123/67
[2019-08-05 00:26] LABS: BILIRUBIN,URINE NEGATIVE (NEG); CLARITY,URINE CLEAR; COLOR,URINE YELLOW; NITRITE,URINE NEGATIVE (NEG); PROTEIN,URINE NEGATIVE (NEG-TRACE); UROBILINOGEN,URINE 0.2 mg/dL (0.2 mg/dL)
[2019-08-05 00:39] LABS: BACTERIA,URINE MODERATE /HPF (0-FEW); SQUAMOUS EPITHELIAL CELL,UR FEW /LPF
[2019-08-05] MEDS ORDERED: PHEN-318 PO (01:01)
[2019-08-05] MEDS ORDERED: CEPH500C PO (01:01)
--- NOTE | 2019-08-05 01:02 | PHYS DOC ---
Past Medical History Past Medical History: Asthma, Bronchitis, Diabetes-Type II Additional Past Medical Histor: vitamin D deficency Past Surgical History: No Surgical History Additional Past Surgical Histo: eye surgery (strabismus correction) Smoking Status: Current Every Day Smoker Alcohol Use: None Drug Use: None Adult General Chief Complaint Chief Complaint: LOWER EXT PAIN HPI HPI Patient is a 38 year old AA female who presents to the ER with complaints of lower back pain and suprapubic pain for the last 2 days. She reports that she feels like she has a UTI. Pt reports increased urinary frequency, foul smelling urine, and dysuria. She denies any hematuria, fever, nausea, vomiting, or diarrhea. Pt states that her back pain does not radiate into her lower extremities and that her discomfort is not worse with movement. She denies any numbness, tingling, or weakness of her lower extremities. She currently rates her pain a 10/10 on the pain scale she denies any alleviating factors. Review of Systems Review of Systems Complete ROS is negative unless otherwise noted in HPI. Allergies Allergies Allergies Coded Allergies Type Severity Reaction Last Updated Verified sulfamethoxazole Adverse Reaction Intermediate nausea and vomiting 07/26/17 Yes trimethoprim Adverse Reaction Intermediate nausea and vomiting 07/26/17 Yes Physical Exam Physical Exam See Above Constitutional: Well developed, well nourished, no acute distress, non-toxic appearance. [] HENT: Normocephalic, atraumatic, bilateral external ears normal, nose normal. [] Eyes: PERRLA, EOMI, conjunctiva normal, no discharge. [] Neck: Normal range of motion, no stridor. [] Cardiovascular:Heart rate regular rhythm Lungs & Thorax: Respirations even and unlabored, no retractions, no respiratory distress Skin: Warm, dry, no erythema, no rash. [] Back: No bony tenderness, no CVA tenderness. [] Extremities: No cyanosis, ROM intact, no edema. [] Neurologic: Alert and oriented X 3, no focal deficits noted. [] Psychologic: Affect normal, judgement normal, mood normal. [] Current Patient Data Vital Signs Vital Signs Date Time Temp Pulse Resp B/P (MAP) Pulse Ox O2 Delivery O2 Flow Rate FiO2 08/05/19 00:00 98.7 93 16 123/67 (85) 98 Room Air 98.7 Lab Values Laboratory Tests Test 08/05/19 00:02 08/05/19 00:07 Urine Collection Type Unknown Urine Color Yellow Urine Clarity Clear Urine pH 6.0 Urine Specific [place] >=1.030 Urine Protein Negative mg/dL (NEG-TRACE) Urine Glucose (UA) >=1000 mg/dL (NEG) Urine Ketones (Stick) Negative mg/dL (NEG) Urine Blood Negative (NEG) Urine Nitrite Negative (NEG) Urine Bilirubin Negative (NEG) Urine Urobilinogen Dipstick 0.2 mg/dL (0.2 mg/dL) Urine Leukocyte Esterase Negative (NEG) Urine RBC 1-2 /HPF (0-2) Urine WBC 1-4 /HPF (0-4) Urine Squamous Epithelial Cells Few /LPF Urine Bacteria Moderate /HPF (0-FEW) POC Urine HCG, Qualitative Hcg negative (Negative) EKG EKG [] Radiology/Procedures Radiology/Procedures [] Course & Med Decision Making Course & Med Decision Making Pertinent Labs and Imaging studies reviewed. (See chart for details) [] Dragon Disclaimer Dragon Disclaimer This electronic medical record was generated, in whole or in part, using a voice recognition dictation system. Departure Departure Impression: Primary Impression: Urinary tract infection Disposition: HOME, SELF-CARE Condition: STABLE Referrals: KOSTA DOWNS (PCP) Patient Instructions: Urinary Tract Infection, [id number] Additional Instructions: Fill the prescriptions and use as directed. Increase fluids, avoid bladder irritants including caffeine, carbonation, and spicy foods. Follow up with your primary care doctor next week. Return to the ER if symptoms worsen. Scripts Cephalexin (CEPHALEXIN) 500 Mg Capsule 1 CAP PO TID for 7 Days, #21 CAP 0 Refills Prov: JANNY KEVIN APRN 08/05/19 Phenazopyridine Hcl (PYRIDIUM) 200 Mg Tablet 1 TAB PO TID for urinary discomfort for 3 Days, #9 TAB 0 Refills Prov: JANNY KEVIN APRN 08/05/19 Problem Qualifiers Primary Impression: Urinary tract infection Urinary tract infection type: site unspecified Hematuria presence: without hematuria Qualified Codes: N39.0 - Urinary tract infection, site not specified JANNY KEVIN APRN Aug 05, 2019 01:02
== END 2019-08-05 01:05 | disposition home or self-care (01) ==
LOC: ER 23:32
DX: N39.0 Urinary tract infection, site not specified (principal); J45.909 Unspecified asthma, uncomplicated; E11.9 Type 2 diabetes mellitus without complications; F17.200 Nicotine dependence, unspecified, uncomplicated; Z88.1 Allergy status to other antibiotic agents; Z88.2 Allergy status to sulfonamides
CPT/HCPCS: 81001; 81025; 87086; 99283

== ENCOUNTER 2020-08-20 10:40 | Emergency (ER) | payer OTHER ==
[~2020-08-20] VITALS: Ht 157.5 cm; Wt 83.1 kg
[~2020-08-20 10:40] MED LIST changes: -LISI-338 PO; +LISI-517 PO
[2020-08-20 11:02] VITALS: BP 125/67
--- NOTE | 2020-08-20 11:23 | PHYS DOC ---
Past Medical History Past Medical History: Asthma, Bronchitis, Diabetes-Type II Additional Past Medical Histor: vitamin D deficency Past Surgical History: , Tubal ligation, Other Additional Past Surgical Histo: eye surgery (strabismus correction) Smoking Status: Current Every Day Smoker Additional Information: 06/15 ppd Alcohol Use: None Drug Use: None General Adult EDM: Chief Complaint: EYE PROBLEMS HPI: HPI: Patient is a 40 year old female who presented to ER due to 2-day history of s kin irritation on her upper eyelids bilaterally. Patient denies any discharge or drainage from her eyes, denies any redness, denies any blurry vision. Patient denies any fever Review of Systems: Review of Systems: Constitutional: Denies fever or chills. [] Eyes: Denies change in visual acuity. [] HENT: Denies nasal congestion or sore throat. [] Respiratory: Denies cough or shortness of breath. [] Cardiovascular: Denies chest pain or edema. [] GI: Denies abdominal pain, nausea, vomiting, bloody stools or diarrhea. [] : Denies dysuria. [] Musculoskeletal: Denies back pain or joint pain. [] Integument: Denies rash. [] Neurologic: Denies headache, focal weakness or sensory changes. [] Endocrine: Denies polyuria or polydipsia. [] Lymphatic: Denies swollen glands. [] Psychiatric: Denies depression or anxiety. [] Heart Score: C/O Chest Pain: N/A Risk Factors: Risk Factors: DM, Current or recent (<one month) smoker, HTN, HLP, family history of CAD, obesity. Risk Scores: Score 0 - 3: 2.5% MACE over next 6 weeks - Discharge Home Score 4 - 6: 20.3% MACE over next 6 weeks - Admit for Clinical Observation Score 7 - 10: 72.7% MACE over next 6 weeks - Early Invasive Strategies Allergies: Allergies: Allergies Coded Allergies Type Severity Reaction Last Updated Verified sulfamethoxazole Adverse Reaction Intermediate nausea and vomiting 08/20/20 Yes trimethoprim Adverse Reaction Intermediate nausea and vomiting 08/20/20 Yes Physical Exam: PE: Constitutional: Well developed, well nourished, no acute distress, non-toxic appearance. [] HENT: Normocephalic, atraumatic, bilateral external ears normal, oropharynx m oist, no oral exudates, nose normal. [] Eyes: PERRLA, EOMI, conjunctiva normal, no discharge. THERE IS A TENDER STY AT MIDDLE PART OF UPPER EYELID BILATERALLY. ] Neurologic: Alert and oriented X 3, normal motor function, normal sensory function, no focal deficits noted. [] Psychologic: Affect normal, judgement normal, mood normal. [] Current Patient Data: Vital Signs: Vital Signs Date Time Temp Pulse Resp B/P (MAP) Pulse Ox O2 Delivery O2 Flow Rate FiO2 08/20/20 11:02 97.9 82 16 125/67 (86) 98 Room Air 97.9 EKG: EKG: [] Radiology/Procedures: Radiology/Procedures: [] Course & Med Decision Making: Course & Med Decision Making Pertinent Labs and Imaging studies reviewed. (See chart for details) [] Dragon Disclaimer: Dragon Disclaimer: This electronic medical record was generated, in whole or in part, using a voice recognition dictation system. Departure Departure Impression: Primary Impression: External hordeolum Disposition: 01 DC HOME SELF CARE/HOMELESS Condition: STABLE Referrals: KOSTA DOWNS (PCP) follow up with your doctor on Wednesday Patient Instructions: Sty Scripts Gentamicin Sulfate (GENTAMICIN SULFATE 0.3% OPHTH OINT) 3.5 Gm Oint...g. 1 TERE EACHEYE TID for 7 Days, #2 EACH Prov: NIKOLAI APARICIO DO 08/20/20 NIKOLAI APARICIO DO Aug 20, 2020 11:23
[2020-08-20] MEDS ORDERED: GENT3.5O9 EACHEYE (11:36)
== END 2020-08-20 11:40 | disposition home or self-care (01) ==
LOC: ER 10:40
DX: H00.014 Hordeolum externum left upper eyelid (principal); H00.011 Hordeolum externum right upper eyelid; J45.909 Unspecified asthma, uncomplicated; E11.9 Type 2 diabetes mellitus without complications; F17.200 Nicotine dependence, unspecified, uncomplicated; Z98.890 Other specified postprocedural states; Z98.51 Tubal ligation status; Z88.2 Allergy status to sulfonamides; Z88.8 Allergy status to other drugs, medicaments and biological substances
CPT/HCPCS: 99283

== ENCOUNTER 2020-12-26 11:18 | Emergency (ER) | payer OTHER ==
[~2020-12-26] VITALS: Ht 157.5 cm; Wt 84.0 kg
[~2020-12-26 11:18] MED LIST changes: +GENT3.5O9 EACHEYE
[2020-12-26] MEDS ORDERED: DIPH,PERTUSS(ACELL),TET VAC/PF 0.5 ML SYRINGE. VAX IM ONE (12:15)
[2020-12-26] MEDS ORDERED: MUPI22OI2 TP (12:21)
[2020-12-26] MEDS ORDERED: CEPH500T PO (12:21)
--- NOTE | 2020-12-26 12:21 | PHYS DOC ---
Past Medical History Past Medical History: Asthma, Bronchitis, Diabetes-Type II Additional Past Medical Histor: vitamin D deficency,DM Past Surgical History: , Tubal ligation, Other Additional Past Surgical Histo: eye surgery (strabismus correction) Smoking Status: Current Every Day Smoker Alcohol Use: None Drug Use: None General Adult EDM: Chief Complaint: INSECT BITE HPI: HPI: Patient is a 40 year old female with a history of diabetes type 2, asthma, bronchitis, who presents to the ED today complaining of insect bite to the left tijerina that she noted 2 days ago. Patient states the area is red and warm. Denies any drainage. Denies any anaphylactic reaction symptoms. Review of Systems: Review of Systems: Constitutional: Denies fever or chills. [] Musculoskeletal: Denies back pain or joint pain. [] Integument: Reports insect bite to the left tijerina Neurologic: Denies headache, focal weakness or sensory changes. [] Psychiatric: Denies depression or anxiety. [] Heart Score: C/O Chest Pain: N/A Risk Factors: Risk Factors: DM, Current or recent (<one month) smoker, HTN, HLP, family history of CAD, obesity. Risk Scores: Score 0 - 3: 2.5% MACE over next 6 weeks - Discharge Home Score 4 - 6: 20.3% MACE over next 6 weeks - Admit for Clinical Observation Score 7 - 10: 72.7% MACE over next 6 weeks - Early Invasive Strategies Current Medications: Current Medications Medications (Trade) Dose Ordered Sig/Rodri Start Time Stop Time Status Last Admin Dose Admin Diphtheria/ Tetanus/Acell Pertussis (ADACEL TDap SYRINGE) 0.5 ml ONCE ONCE 12/26/20 12:15 12/26/20 12:16 UNV Allergies: Allergies: Allergies Coded Allergies Type Severity Reaction Last Updated Verified sulfamethoxazole Adverse Reaction Intermediate nausea and vomiting 08/20/20 Yes trimethoprim Adverse Reaction Intermediate nausea and vomiting 08/20/20 Yes Physical Exam: PE: Constitutional: Well developed, well nourished, no acute distress, non-toxic appearance. [] Skin: Left tijerina with an area of cellulitis approximately 2 x 2 cm, the area is warm tender to touch, no fluctuance Back: No tenderness, no CVA tenderness. [] Extremities: No tenderness, no cyanosis, no clubbing, ROM intact, no edema. [] Neurologic: Alert and oriented X 3, normal motor function, normal sensory function, no focal deficits noted. [] Psychologic: Affect normal, judgement normal, mood normal. [] Current Patient Data: Vital Signs: Vital Signs Date Time Temp Pulse Resp B/P (MAP) Pulse Ox O2 Delivery O2 Flow Rate FiO2 12/26/20 11:57 98.4 67 16 118/63 (86) 100 Room Air 98.4 EKG: EKG: [] Radiology/Procedures: Radiology/Procedures: [] Course & Med Decision Making: Course & Med Decision Making Pertinent Labs and Imaging studies reviewed. (See chart for details) This is a 40-year-old female patient presented to the ED today with cellulitis of the left tijerina after being bit by an insect. Tetanus was updated. Discharged on mupirocin and cephalexin. Wound care instructions and return precautions provided Dragon Disclaimer: Dragon Disclaimer: This electronic medical record was generated, in whole or in part, using a voice recognition dictation system. Departure Departure Impression: Primary Impression: Cellulitis of lower extremity Qualified Codes: L03.116 - Cellulitis of left lower limb Additional Impression: Insect bite of lower limb Qualified Codes: S80.862A - Insect bite (nonvenomous), left lower leg, initial encounter; W57.XXXA - Bitten or stung by nonvenomous insect and other nonvenomous arthropods, initial encounter Disposition: 01 HOME / SELF CARE / HOMELESS Condition: STABLE Referrals: KOSTA DOWNS (PCP) follow up in one week Patient Instructions: Insect Bite, Ygri-it-Pkcg Additional Instructions: You have infected insect bite to the left tijerina. Please use the antibiotics prescribed as ordered. You can wash the area once or twice a day with regular soap and water. Keep it open to air if it is not draining. Follow-up with your primary care doctor in 1 to 2 weeks. Come back to the ED at any point symptoms worsen Scripts Cephalexin (CEPHALEXIN) 500 Mg Tablet 1 TAB PO TID, #30 TAB Prov: BHAKTI CRAMER [employer] 12/26/20 Mupirocin (MUPIROCIN OINTMENT) 22 Gm Oint...g. 1 TERE TP TID for WOUND CARE, #1 EACH Prov: BHAKTI CRAMER [employer] 12/26/20 BHAKTI CRAMER APRN Dec 26, 2020 12:21
[2020-12-26 12:28] VITALS: BP 129/75
[2020-12-27] MEDS ORDERED: ORPH100T PO (17:08)
== END 2020-12-26 12:29 | disposition home or self-care (01) ==
LOC: ER 11:18
DX: S80.862A Insect bite (nonvenomous), left lower leg, initial encounter (principal); L03.116 Cellulitis of left lower limb; J45.909 Unspecified asthma, uncomplicated; E11.9 Type 2 diabetes mellitus without complications; F17.200 Nicotine dependence, unspecified, uncomplicated; Z98.890 Other specified postprocedural states; Z98.51 Tubal ligation status; Z88.2 Allergy status to sulfonamides; Z88.1 Allergy status to other antibiotic agents; W57.XXXA Bitten or stung by nonvenomous insect and other nonvenomous arthropods, initial encounter; Y93.89 Activity, other specified; Y92.89 Other specified places as the place of occurrence of the external cause; Y99.8 Other external cause status
CPT/HCPCS: 90471; 90715; 99283

== ENCOUNTER 2020-12-27 15:51 | Emergency (ER) | payer OTHER ==
[~2020-12-27] VITALS: Ht 157.5 cm; Wt 84.0 kg
[~2020-12-27 15:51] MED LIST changes: +MUPI22OI2 TP
[2020-12-27 16:07] VITALS: BP 133/83
[2020-12-27] MEDS ORDERED: IBUPROFEN 200 MG TABLET. PO ONE (16:30)
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
[2020-12-27] MEDS ORDERED: ORPH100T PO (17:08)
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
== END 2020-12-27 17:16 | disposition home or self-care (01) ==
LOC: ER 15:51
DX: S86.811A Strain of other muscle(s) and tendon(s) at lower leg level, right leg, initial encounter (principal); R51.9 Headache, unspecified; M54.2 Cervicalgia; J45.909 Unspecified asthma, uncomplicated; E11.9 Type 2 diabetes mellitus without complications; F17.200 Nicotine dependence, unspecified, uncomplicated; V49.59XA Passenger injured in collision with other motor vehicles in traffic accident, initial encounter; Y92.488 Other paved roadways as the place of occurrence of the external cause; Y93.89 Activity, other specified; Y99.8 Other external cause status
CPT/HCPCS: 73562; 81025; 99283

== ENCOUNTER 2021-07-04 16:42 | Emergency (ER) | payer OTHER ==
[~2021-07-04] VITALS: Ht 157.5 cm; Wt 81.3 kg
[~2021-07-04 16:42] MED LIST changes: -LISI-517 PO; +LISI5TAB15 PO; +ORPH100T PO
[2021-07-04] MEDS ORDERED: FAMOTIDINE 20 MG/2 ML VIAL IVP ONE (17:30)
[2021-07-04] MEDS ORDERED: diphenhydrAMINE 50 MG/ML VIAL IVP ONE (17:30)
[2021-07-04] MEDS ORDERED: IV RINGERS,LACTATED 1000ML 1,000 ML IV ONE (17:30)
[2021-07-04] MEDS ORDERED: ONDANSETRON PF 4 MG/2 ML VIAL. IVP ONE (17:30)
[2021-07-04 17:37] LABS: BILIRUBIN,URINE NEGATIVE (NEG); CLARITY,URINE CLEAR; COLOR,URINE YELLOW; NITRITE,URINE NEGATIVE (NEG); PH,URINE 6.5 (<5.0-8.0); PROTEIN,URINE NEGATIVE (NEG-TRACE); UROBILINOGEN,URINE 0.2 mg/dL (0.2 mg/dL)
--- NOTE | 2021-07-04 17:39 | PHYS DOC ---
Past Medical History Past Medical History: Asthma, Bronchitis, Diabetes-Type II Additional Past Medical Histor: vitamin D deficency Past Surgical History: , Tubal ligation, Other Additional Past Surgical Histo: eye surgery (strabismus correction) Smoking Status: Current Every Day Smoker Additional Information: 0.5 PPD Alcohol Use: None Drug Use: None General Adult EDM: Chief Complaint: ABDOMINAL PAIN HPI: HPI: Patient is a 40 year old diabetic female who presents with 1 month history of right upper quadrant abdominal pain. Patient describes her pain as discomfort that is associated with nausea and acidic belching that leaves a bad taste in her mouth. She states that the pain is constant and radiates to her right side in her back. Patient reports intermittent episodes of soft stool, but denies diarrhea. She also denies emesis, chest pain, palpitations, edema, diaphoresis, dysuria and hematuria. Review of Systems: Review of Systems: Constitutional: Denies fever, chills or generalized weakness Eyes: Denies change in visual acuity, visual field deficits or discharge HENT: Denies ear pain, nasal congestion or sore throat Respiratory: Denies cough or shortness of breath Cardiovascular: See HPI GI: See HPI : See HPI Musculoskeletal: See HPI Integument: Denies rash or other skin lesion Neurologic: Denies headache, focal weakness or sensory changes Heart Score: C/O Chest Pain: No Current Medications: Current Medications Medications (Trade) Dose Ordered Sig/Rodri Start Time Stop Time Status Last Admin Dose Admin Diphenhydramine HCl (Benadryl) 25 mg 1X ONCE 07/04/21 17:30 07/04/21 17:31 Famotidine (Pepcid Vial) 20 mg 1X ONCE 07/04/21 17:30 07/04/21 17:31 Ondansetron HCl (Zofran) 4 mg 1X ONCE 07/04/21 17:30 07/04/21 17:31 Ringer's Solution 1,000 ml @ 1,000 mls/hr 1X ONCE 07/04/21 17:30 07/04/21 18:29 Allergies: Allergies: Allergies Coded Allergies Type Severity Reaction Last Updated Verified sulfamethoxazole Adverse Reaction Intermediate nausea and vomiting 08/20/20 Yes trimethoprim Adverse Reaction Intermediate nausea and vomiting 08/20/20 Yes Physical Exam: PE: Constitutional: Well developed, well nourished, no acute distress, non-toxic appearance. HENT: Normocephalic, atraumatic, bilateral external ears normal, nose normal. Eyes: EOMI, conjunctiva normal, no discharge. Neck: Normal range of motion, no stridor. Cardiovascular: Heart rate regular rhythm, no murmur. Lungs & Thorax: Bilateral breath sounds clear to auscultation, mildly diminished throughout. Abdomen: Bowel sounds normal, soft, right upper quadrant tenderness, positive Bird's sign, no masses, no pulsatile masses. Skin: Warm, dry, no erythema, no rash. Back: No step-off, no tenderness, no CVA tenderness. Extremities: No tenderness, no cyanosis, no clubbing, ROM intact, no edema. Current Patient Data: Labs: Laboratory Tests Test 07/04/21 16:50 07/04/21 16:58 07/04/21 17:45 Urine Collection Type Void Urine Color Yellow Urine Clarity Clear Urine pH 6.5 (<5.0-8.0) Urine Specific Mccall >=1.030 (1.000-1.030) Urine Protein Negative mg/dL (NEG-TRACE) Urine Glucose (UA) >=1000 mg/dL (NEG) Urine Ketones (Stick) Negative mg/dL (NEG) Urine Blood Negative (NEG) Urine Nitrite Negative (NEG) Urine Bilirubin Negative (NEG) Urine Urobilinogen Dipstick 0.2 mg/dL (0.2 mg/dL) Urine Leukocyte Esterase Negative (NEG) Urine RBC 1-2 /HPF (0-2) Urine WBC 20-40 /HPF (0-4) Urine Squamous Epithelial Cells Occ /LPF Urine Bacteria Few /HPF (0-FEW) Bedside Urine HCG, Qualitative Hcg negative (Negative) White Blood Count 6.1 x10^3/uL (4.0-11.0) Red Blood Count 4.40 x10^6/uL (3.50-5.40) Hemoglobin 9.9 g/dL (12.0-15.5) Hematocrit 31.1 % (36.0-47.0) Mean Corpuscular Volume 71 fL (79-100) Mean Corpuscular Hemoglobin 23 pg (25-35) Mean Corpuscular Hemoglobin Concent 32 g/dL (31-37) Red Cell Distribution Width 17.9 % (11.5-14.5) Platelet Count 259 x10^3/uL (140-400) Neutrophils (%) (Auto) 56 % (31-73) Lymphocytes (%) (Auto) 33 % (24-48) Monocytes (%) (Auto) 8 % (0-9) Eosinophils (%) (Auto) 2 % (0-3) Basophils (%) (Auto) 1 % (0-3) Neutrophils # (Auto) 3.4 x10^3/uL (1.8-7.7) Lymphocytes # (Auto) 2.0 x10^3/uL (1.0-4.8) Monocytes # (Auto) 0.5 x10^3/uL (0.0-1.1) Eosinophils # (Auto) 0.1 x10^3/uL (0.0-0.7) Basophils # (Auto) 0.0 x10^3/uL (0.0-0.2) Platelet Estimate Adequate (ADEQUATE) Polychromasia Present Hypochromasia Mod Poikilocytosis Slight Anisocytosis Slight Microcytosis Mod Spherocytes Few Tear Drop Cells Occ Ovalocytes Few Sodium Level 140 mmol/L (136-145) Potassium Level 4.1 mmol/L (3.5-5.1) Chloride Level 104 mmol/L (98-107) Carbon Dioxide Level 25 mmol/L (21-32) Anion Gap 11 (6-14) Blood Urea Nitrogen 10 mg/dL (7-20) Creatinine 0.7 mg/dL (0.6-1.0) Estimated GFR (Cockcroft-Gault) 111.0 BUN/Creatinine Ratio 14 (6-20) Glucose Level 237 mg/dL (70-99) Calcium Level 8.3 mg/dL (8.5-10.1) Total Bilirubin 0.2 mg/dL (0.2-1.0) Aspartate Amino Transf (AST/SGOT) 10 U/L (15-37) Alanine Aminotransferase (ALT/SGPT) 18 U/L (14-59) Alkaline Phosphatase 138 U/L (46-116) Total Protein 7.7 g/dL (6.4-8.2) Albumin 3.3 g/dL (3.4-5.0) Albumin/Globulin Ratio 0.8 (1.0-1.7) Lipase 69 U/L (73-393) Vital Signs: Vital Signs Date Time Temp Pulse Resp B/P (MAP) Pulse Ox O2 Delivery O2 Flow Rate FiO2 07/04/21 16:48 98.9 90 17 131/77 (95) 98.9 Radiology/Procedures: Radiology/Procedures: PROCEDURE: CT ABD PELV W/ IV CONTRST ONLY Exam: CT abdomen/pelvis with intravenous contrast Indication: Right upper quadrant pain, nausea Comparison: CTA chest abdomen pelvis 01/16/2019 Technique: Helical CT imaging performed of the abdomen and pelvis after the intravenous administration of 75 mL Omnipaque 300 contrast. Sagittal and coronal reformats were obtained. One or more of the following individualized dose reduction techniques were utilized for this examination: 1. Automated exposure control 2. Adjustment of the mA and/or kV according to patient size 3. Use of iterative reconstruction technique. Findings: Lower chest: The heart is normal in size. Lung bases are clear. Liver: Normal. No focal lesion. Gallbladder/Biliary Tree: Normal. Pancreas: Normal. Spleen: Normal. Adrenal Glands: Normal. Kidneys/Ureters/Bladder: Kidneys are normal in size and enhance symmetrically. No hydronephrosis. Ureters and bladder are normal. Reproductive Organs: Uterus is anteverted. Unchanged 3.3 cm right ovarian cyst. The left ovary is normal. Stomach, small bowel, and colon: The stomach is mildly distended with debris. There is no small bowel obstruction. The appendix is normal. The colon is normal. Vasculature: Abdominal aortic aneurysm. Lymph Nodes: No lymphadenopathy. Peritoneum and retroperitoneum: Trace free fluid in the pelvis. No free air. Bones: No acute osseous abnormality. IMPRESSION: 1. No acute abnormality in the abdomen and pelvis. 2. Mildly distended stomach containing debris. 3. Unchanged 3.3 cm right ovarian cyst. 4. Trace free fluid in the pelvis. Electronically signed by: Peg Kline MD (07/04/2021 6:51 PM) [id number] PROCEDURE: ABDOMEN LTD EXAMINATION: US ABDOMEN LIMITED 07/04/2021 7:45 PM INDICATION: Right upper quadrant pain, nausea TECHNIQUE: [place] scale and color Doppler ultrasound images of the right upper quadrant were obtained. COMPARISON: CT abdomen pelvis same day. FINDINGS: Liver: The liver is normal in size measuring 16.8 cm in length. Normal hepatic echogenicity. No focal liver lesion. Gallbladder: The gallbladder is normal in caliber. No cholelithiasis or sludge. The gallbladder wall is normal in thickness measuring 2 mm. Bile ducts: The common bile duct is normal measuring 3 mm. No intrahepatic biliary duct dilatation. Right kidney: The right kidney measures 11.9 x 4.8 x 4.2 cm. Normal cortical thickness and echogenicity. No hydronephrosis. Other: Inferior vena cava is normal where visualized. The pancreas is obscured. IMPRESSION: Unremarkable right upper quadrant ultrasound. Electronically signed by: Peg Kline MD (07/04/2021 8:40 PM) [id number] Course & Med Decision Making: Course & Med Decision Making Pertinent Labs and Imaging studies reviewed. (See chart for details) Patient is a 40-year-old female who presents with right upper quadrant pain, na usea and acidic belching for the past month. Patient symptoms and exam concerning for possible gallbladder pathology, hepatic pathology, gastritis/GERD/gastric ulcer. Work-up today will include labs, abdominal CT with IV contrast, urinalysis. Patient provided with IV Zofran and Pepcid. On reevaluation, patient states that her nausea is much improved. She continues to experience right upper quadrant abdominal discomfort. Informed patient that CT was negative for any acute findings and that the ovarian cysts is unchanged. Right upper quadrant abdominal ultrasound ordered for further evaluation of gallbladder. Ultrasound also negative for any acute findings. Informed patient that the etiology of her pain is likely related to her stomach and possible GERD symptoms. Advised patient to follow-up with gastroenterology for further evaluation and management. Contact information for Dr. Ervin was provided. Prescription sent electronically for Pepcid and Zofran. Patient is advised to use [id number] antacids as needed for acidic belching 2 hours after taking Pepcid, should symptoms persist. Tylenol is preferable to NSAIDS for pain in setting of GI upset. Patient understands and is agreeable to discharge plan. Dragon Disclaimer: Dragon Disclaimer: This electronic medical record was generated, in whole or in part, using a voice recognition dictation system. Departure Departure Impression: Primary Impression: Gastritis Qualified Codes: K29.00 - Acute gastritis without bleeding Additional Impression: Upper abdominal pain, unspecified Disposition: HOME / SELF CARE / HOMELESS Condition: IMPROVED Referrals: KOSTA DOWNS (PCP) PERRY ERVIN MD Patient Instructions: Abdominal Pain, Jxug-jh-Wnpe, Gastritis, Adult, [id number] Additional Instructions: EMERGENCY DEPARTMENT GENERAL DISCHARGE INSTRUCTIONS Thank you for coming to [facility] Emergency Department (ED) today and trusting us with you care. We trust that you had a positive experience in our Emergency Department. If you wish to speak to the department management, you may call the director at . YOUR FOLLOW UP INSTRUCTIONS ARE FOLLOWS: 1. Follow up with your primary care doctor and the specialist listed above, Dr. Ervin. If you do not have a primary doctor, please ask for a resource list of physicians or clinics that may be able to assist you with follow up care. 2. The emergency provider has interpreted your imaging studies, if any were ordered. The radiology internet specialist also reviewed them. If there is a change in the findings, you will be notified in 48 hours when at all possible. 3. If a lab test or culture has been done, your results will be reviewed and you will be notified if you need a change in treatment. 4. Follow instructions verbalized to you and refer to the printouts if needed. ADDITIONAL INSTRUCTIONS AND INFORMATION: 1. Your care today has been supervised by a physician who is specially trained in emergency care. Many problems require more than one evaluation for a complete diagnosis and treatment. We recommend that you schedule your follow up appointment as recommended to ensure complete treatment of you illness or injury. If you are unable to obtain follow up care and continue to have a problem, or if your condition worsens, we recommend that you return to the ED. 2. We are not able to safely determine your condition over the phone nor are we able to give sound medical advice over the phone. For these safety reasons, if you call for medical advice we will ask you to come to the ED for further evaluation. 3. If you have any questions regarding these discharge instructions please call the ED at . SAFETY INFORMATION: In the interest of safety, wellness, and injury prevention; we encourage you to wear your seat belt, if you smoke; quite smoking, and we encourage family to use a protective helmet for bicycling and other sporting events that present an increased risk for head injury. IF YOUR SYMPTOMS WORSEN OR NEW SYMPTOMS DEVELOP, OR YOU HAVE CONCERNS ABOUT YOUR CONDITION; OR IF YOUR CONDITION WORSENS WHILE YOU ARE WAITING FOR YOUR FOLLOW UP APPOINTMENT; EITHER CONTACT YOUR PRIMARY CARE DOCTOR, THE PHYSICIAN WHOSE NAME AND NUMBER YOU WERE GIVEN, OR RETURN TO THE ED IMMEDIATELY. Scripts Famotidine (PEPCID) 20 Mg Tablet 20 MG PO BID for 10 Days, #20 TAB Prov: ALYSSIA NIOÑ 07/04/21 Ondansetron (ONDANSETRON ODT) 4 Mg Tab.rapdis 1 TAB PO PRN Q6-8HRS for N/V, #20 TAB Prov: ALYSSIA NIÑO 07/04/21 ALYSSIA NIÑO Jul 04, 2021 17:38
[2021-07-04 17:47] LABS: BACTERIA,URINE FEW /HPF (0-FEW); WBC,URINE 20-40 /HPF (0-4)
[2021-07-04 17:56] LABS: BASO % 1 % (0-3); EOS # 0.1 x10^3/uL (0.0-0.7); EOS % 2 % (0-3); HEMATOCRIT 31.1 % (36.0-47.0); HEMOGLOBIN 9.9 g/dL (12.0-15.5); LYMPH % 33 % (24-48); MEAN CORPUSCULAR HEMOGLOBIN 23 pg (25-35); MEAN CORPUSCULAR HGB CONC 32 g/dL (31-37); MEAN CORPUSCULAR VOLUME 71 fL (79-100); MONO # 0.5 x10^3/uL (0.0-1.1); MONO % 8 % (0-9); NEUT # 3.4 x10^3/uL (1.8-7.7); NEUT % 56 % (31-73); PLATELET COUNT 259 x10^3/uL (140-400); RED CELL DISTRIBUTION WIDTH 17.9 % (11.5-14.5); WHITE BLOOD COUNT 6.1 x10^3/uL (4.0-11.0)
[2021-07-04 18:04] LABS: CALCIUM 8.3 mg/dL (8.5-10.1); CREATININE 0.7 mg/dL (0.6-1.0); POTASSIUM 4.1 mmol/L (3.5-5.1)
[2021-07-04 18:09] LABS: ALBUMIN 3.3 g/dL (3.4-5.0); ALBUMIN/GLOBULIN RATIO 0.8 (1.0-1.7); TOTAL BILIRUBIN 0.2 mg/dL (0.2-1.0); TOTAL PROTEIN 7.7 g/dL (6.4-8.2)
[2021-07-04] MEDS ORDERED: IOHEXOL 300 MG/ML 100ML VIAL. IV ONE (18:15)
[2021-07-04] MEDS ORDERED: CONTRAST GIVEN. MC PRN (18:15)
[2021-07-04 18:51] LABS: ANISOCYTOSIS SLIGHT; HYPOCHROMIA MOD; MICROCYTOSIS MOD; PLT ESTIMATE ADEQUATE (ADEQUATE)
[2021-07-04 18:53] LABS: OVALOCYTES FEW; POIKILOCYTOSIS SLIGHT; POLYCHROMASIA PRESENT; TEAR DROP CELLS OCC
--- NOTE | 2021-07-04 18:53 | RAD ---
Exam: CT abdomen/pelvis with intravenous contrast Indication: Right upper quadrant pain, nausea Comparison: CTA chest abdomen pelvis 01/16/2019 Technique: Helical CT imaging performed of the abdomen and pelvis after the intravenous administratio n of 75 mL Omnipaque 300 contrast. Sagittal and coronal reformats were obtained. One or more of the following individualized dose reduction techniques were utilized for this examinat ion: 1. Automated exposure control 2. Adjustment of the mA and/or kV according to patient size 3. Use of iterative reconstruction technique. Findings: Lower chest: The heart is normal in size. Lung bases are clear. Liver: Normal. No focal lesion. Gallbladder/Biliary Tree: Normal. Pancreas: Normal. Spleen: Normal. Adrenal Glands: Normal. Kidneys/Ureters/Bladder: Kidneys are normal in size and enhance symmetrically. No hydronephrosis. Ure ters and bladder are normal. Reproductive Organs: Uterus is anteverted. Unchanged 3.3 cm right ovarian cyst. The left ovary is nor mal. Stomach, small bowel, and colon: The stomach is mildly distended with debris. There is no small bowel obstruction. The appendix is normal. The colon is normal. Vasculature: Abdominal aortic aneurysm. Lymph Nodes: No lymphadenopathy. Peritoneum and retroperitoneum: Trace free fluid in the pelvis. No free air. Bones: No acute osseous abnormality. IMPRESSION: 1. No acute abnormality in the abdomen and pelvis. 2. Mildly distended stomach containing debris. 3. Unchanged 3.3 cm right ovarian cyst. 4. Trace free fluid in the pelvis. Electronically signed by: Peg Kline MD (07/04/2021 6:51 PM) [id number]
[2021-07-04 18:54] LABS: SPHEROCYTES FEW
--- NOTE | 2021-07-04 20:43 | RAD ---
EXAMINATION: US ABDOMEN LIMITED 07/04/2021 7:45 PM INDICATION: Right upper quadrant pain, nausea TECHNIQUE: [place] scale and color Doppler ultrasound images of the right upper quadrant were obtained. COMPARISON: CT abdomen pelvis same day. FINDINGS: Liver: The liver is normal in size measuring 16.8 cm in length. Normal hepatic echogenicity. No foc al liver lesion. Gallbladder: The gallbladder is normal in caliber. No cholelithiasis or sludge. The gallbladder wa ll is normal in thickness measuring 2 mm. Bile ducts: The common bile duct is normal measuring 3 mm. No intrahepatic biliary duct dilatation. Right kidney: The right kidney measures 11.9 x 4.8 x 4.2 cm. Normal cortical thickness and echogenic ity. No hydronephrosis. Other: Inferior vena cava is normal where visualized. The pancreas is obscured. IMPRESSION: Unremarkable right upper quadrant ultrasound. Electronically signed by: Peg Kline MD (07/04/2021 8:40 PM) [id number]
[2021-07-04] MEDS ORDERED: ONDA4TAB12 PO (20:53)
[2021-07-04] MEDS ORDERED: FAMO-63 PO (20:53)
[2021-07-04 21:09] VITALS: BP 126/75
== END 2021-07-04 21:15 | disposition home or self-care (01) ==
LOC: ER 16:42
DX: K29.00 Acute gastritis without bleeding (principal); J45.909 Unspecified asthma, uncomplicated; E11.9 Type 2 diabetes mellitus without complications; Z98.51 Tubal ligation status; F17.200 Nicotine dependence, unspecified, uncomplicated; Z88.1 Allergy status to other antibiotic agents; Z88.2 Allergy status to sulfonamides
CPT/HCPCS: 36415; 74177; 76705; 80053; 81001; 81025; 83690; 85025; 87077; 87086; 87186; 96361; 96374; 96375; 99285; J1200; J2405; J3490; J7120; Q9967